=== PATIENT | male | born 1965 | race Caucasian/White ===

== ENCOUNTER 2018-02-12 12:06 | Emergency (ER) | payer OTHER ==
[~2018-02-12] VITALS: Ht 172.7 cm; Wt 99.8 kg
[~2018-02-12 12:06] MED LIST: BACTRIM DS TAB1 EACH PO; CENTRUM TABLET1 TAB PO; CIPRO750 MG PO; FOLIC ACID0.4 MG PO; LASIX20 MG PO; PLAVIX75 MG PO; PNEU16DI2; SYNTHROID50 MCG; TRAMADOL HCL50 MG PO; TRICOR145 MG PO; ZOCOR20 MG PO
[2018-02-12] MEDS ORDERED: KETOCONAZOLE200 MG PO (19:15)
== END 2018-02-12 19:19 | disposition home or self-care (01) ==
LOC: ER 12:06
DX: B35.3 Tinea pedis (principal)

== ENCOUNTER 2019-09-10 12:06 | Emergency (ER) | payer OTHER ==
[~2019-09-10] VITALS: Ht 167.6 cm; Wt 111.1 kg
[~2019-09-10 12:06] MED LIST changes: +KETOCONAZOLE200 MG PO
== END 2019-09-10 15:00 | disposition home or self-care (01) ==
LOC: ER 12:06
DX: S43.492A Other sprain of left shoulder joint, initial encounter (principal); X50.9XXA Other and unspecified overexertion or strenuous movements or postures, initial encounter; Y93.89 Activity, other specified; Y92.89 Other specified places as the place of occurrence of the external cause; Y99.8 Other external cause status

== ENCOUNTER 2020-05-06 18:34 | Emergency (ER) | payer OTHER ==
[~2020-05-06] VITALS: Ht 172.7 cm; Wt 108.4 kg
[2020-05-06] MEDS ORDERED: PERCOCET 5-3251 EACH PO (23:28)
== END 2020-05-07 00:42 | disposition home or self-care (01) ==
LOC: ER 18:34
DX: N20.0 Calculus of kidney (principal); R10.32 Left lower quadrant pain; Z11.52 Encounter for screening for COVID-19

== ENCOUNTER 2020-05-09 07:43 | Emergency (ER) | payer OTHER ==
[~2020-05-09] VITALS: Ht 172.7 cm; Wt 108.4 kg
[~2020-05-09 07:43] MED LIST changes: +PERCOCET 5-3251 EACH PO
[2020-05-09] MEDS ORDERED: LIDOPATCH1 EACH TOP (17:00)
[2020-05-09] MEDS ORDERED: EC-NAPROSYN375 MG PO (17:00)
[2020-05-09] MEDS ORDERED: SKELAXIN800 MG PO (17:00)
== END 2020-05-09 19:15 | disposition home or self-care (01) ==
LOC: ER 07:43
DX: R10.32 Left lower quadrant pain (principal)

== ENCOUNTER 2024-05-05 11:47 | Emergency (ER) | payer OTHER ==
[~2024-05-05] VITALS: Ht 172.7 cm; Wt 106.6 kg
[~2024-05-05 11:47] MED LIST changes: +EC-NAPROSYN375 MG PO; +EZALLOR SPRINKL10 MG; +FARXIGA10 MG PO; +LIDOPATCH1 EACH TOP; +LOSARTAN POTASS50 MG PO; +SKELAXIN800 MG PO; +ZITHROMAX500 MG PO
[2024-05-05] MEDS ORDERED: GLUMETZA500 MG PO (12:13)
[2024-05-05] MEDS ORDERED: ACETAMINOPHEN WITH CODEINE 1 UDTAB TABLET PO STA (13:14)
[2024-05-05] MEDS ORDERED: DEXAMETHASONE SODIUM PHOSPHATE 4 MG/ML VIAL IM STA (13:15)
== END 2024-05-05 13:35 | disposition home or self-care (01) ==
LOC: ER 11:50
DX: H66.90 Otitis media, unspecified, unspecified ear (principal); Z88.0 Allergy status to penicillin; Z88.6 Allergy status to analgesic agent; Z91.013 Allergy to seafood